=== PATIENT | female | born 1955 | race Caucasian/White ===

== ENCOUNTER 2018-07-15 10:42 | Observation (INO) | payer OTHER ==
[2018-07-15] MEDS: ONDANSETRON 4 MG INJ IV (12:00)
[2018-07-15] MEDS: HYDROmorphONE 1 MG/ML SYG IV (12:01)
[2018-07-15 12:11] LABS: ADD MAN DIFF? NO
[2018-07-15 12:17] LABS: BASOPHILS % 0.5 % (0.0-2.0); EOSINOPHILS % 0.7 % (0.0-7.0); HEMATOCRIT 35.1 % (37.0-47.0); HEMOGLOBIN 11.6 g/dl (12.0-16.0); LYMPHOCYTES # 3.1 10^3/ul (0.8-2.9); LYMPHOCYTES % 49.7 % (15.0-51.0); MEAN CORPUSCULAR HEMOGLOBIN 30.4 pg (29.0-33.0); MEAN CORPUSCULAR VOLUME 92.1 fl (82.0-101.0); MEAN PLATELET VOLUME 11.6 fl (7.4-10.4); MONOCYTE # 0.4 10^3/ul (0.3-0.9); MONOCYTES % 6.5 % (0.0-11.0); NEUTROPHIL # 2.6 10^3/ul (1.6-7.5); NEUTROPHILS % 42.4 % (39.0-77.0); PLATELET COUNT 175 10^3/UL (140-415); RED BLOOD COUNT 3.81 10^6/ul (4.20-5.40); RED CELL DISTRIBUTION WIDTH 13.2 % (11.5-14.5)
[2018-07-15 12:17] LABS: WHITE BLOOD COUNT 6.1 10^3/ul (4.8-10.8)
[2018-07-15 12:22] LABS: POSITIVE DIFF @See below
[2018-07-15 12:37] LABS: ANION GAP 10 (5-13); BLOOD UREA NITROGEN 28 mg/dl (7-20); CARBON DIOXIDE 22 mmol/L (21-31); CHLORIDE 106 mmol/L (97-110); Estimated GFR > 60 mL/min (>60); GLUCOSE 101 mg/dl (70-220); POTASSIUM 5.1 mmol/L (3.5-5.1); SODIUM 138 mmol/L (135-144)
[2018-07-15] MEDS: SOD CHLORIDE 0.9% 100 ML (12:47)
[2018-07-15] MEDS: IOHEXOL 300MG/ML 150 ML BTL (12:47)
[2018-07-15 12:48] LABS: TROPONIN-I < 0.012 ng/ml (0.000-0.120)
[2018-07-15] MEDS: LORAZEPAM 2 MG INJ IV (13:49)
[2018-07-15] MEDS ORDERED: ACETAMINOPHEN 325 MG TAB PO ×2 (14:00→15:00)
[2018-07-15] MEDS ORDERED: ONDANSETRON 4 MG INJ IV ×2 (14:00→15:00)
[2018-07-15] MEDS ORDERED: NACL 0.9% 3 ML SYG IV (15:00)
[2018-07-15 15:29] LABS: HEMOGLOBIN A1C 5.5 % (0-5.9)
[2018-07-15 15:32] LABS: FREE T4 (FREE THYROXINE) 1.15 ng/dl (0.78-2.44)
[2018-07-15] MEDS: KETOROLAC 30 MG INJ IV (17:41)
[2018-07-15] MEDS: ALBUTEROL/IPRATROPIUM (NEB) 3 ML AMP HHN (20:00)
[2018-07-15] MEDS: ATORVASTATIN 20 MG TAB PO (21:00)
[2018-07-15] MEDS: traMADol 50 MG TAB PO (23:47)
[2018-07-16] MEDS: LORAZEPAM 2 MG INJ IV ×3 (00:09→20:38)
[2018-07-16] MEDS: NICOTINE (21 MG/24 HR) PATCH TRANSDERM ×2 (02:44→08:55)
[2018-07-16 06:42] LABS: ABNORMAL IP MESSAGE 1; HEMOGLOBIN 10.5 g/dl (12.0-16.0); MEAN CORPUSCULAR HEMOGLOBIN 30.7 pg (29.0-33.0); MEAN CORPUSCULAR HGB CONC 32.8 g/dl (32.0-37.0); MEAN CORPUSCULAR VOLUME 93.6 fl (82.0-101.0); MEAN PLATELET VOLUME 10.4 fl (7.4-10.4); PLATELET COUNT 183 10^3/UL (140-415); RED BLOOD COUNT 3.42 10^6/ul (4.20-5.40); RED CELL DISTRIBUTION WIDTH 13.5 % (11.5-14.5)
[2018-07-16 06:49] LABS: POSITIVE DIFF @See below
[2018-07-16 06:50] LABS: ADD MAN DIFF? YES
[2018-07-16 07:10] LABS: CHOL/HDL RATIO 5.4 RATIO; CHOLESTEROL 200 mg/dl (100-200); HDL CHOLESTEROL 37 mg/dl (35-98); LDL CHOLESTEROL,CALCULATED 134 mg/dl; MAGNESIUM 1.9 mg/dl (1.7-2.5); TRIGLYCERIDES 143 mg/dl (0-149)
[2018-07-16 07:16] LABS: ALANINE AMINOTRANSFERASE 13 IU/L (13-69); ALBUMIN 3.8 g/dl (3.3-4.9); ALBUMIN/GLOBULIN RATIO 1.22; ALKALINE PHOSPHATASE 61 IU/L (42-121); ANION GAP 6 (5-13); ASPARTATE AMINO TRANSFERASE 24 IU/L (15-46); BLOOD UREA NITROGEN 39 mg/dl (7-20); CALCIUM 9.3 mg/dl (8.4-10.2); CARBON DIOXIDE 25 mmol/L (21-31); CHLORIDE 107 mmol/L (97-110); CREATININE 0.92 mg/dl (0.44-1.00); Estimated GFR > 60 mL/min (>60); GLUCOSE 91 mg/dl (70-220); POTASSIUM 4.4 mmol/L (3.5-5.1); SODIUM 138 mmol/L (135-144); TOTAL PROTEIN 6.9 g/dl (6.1-8.1)
[2018-07-16] MEDS: ALBUTEROL/IPRATROPIUM (NEB) 3 ML AMP HHN ×3 (08:00→20:49)
[2018-07-16] MEDS: traMADol 50 MG TAB PO ×2 (08:54→20:16)
[2018-07-16] MEDS: SERTRALINE 50 MG TAB PO (08:54)
[2018-07-16] MEDS: ENOXAPARIN 40 MG/0.4 ML SYG SC (09:06)
[2018-07-16 09:42] LABS: ADD UMIC NO; UR ASCORBIC ACID 20 mg/dL (NEGATIVE); UR BILIRUBIN (Dip) NEGATIVE (NEGATIVE); UR BLOOD (Dip) NEGATIVE (NEGATIVE); UR CLARITY CLEAR (CLEAR); UR COLOR YELLOW (YELLOW); UR GLUCOSE (Dip) NEGATIVE (NEGATIVE); UR KETONES (Dip) NEGATIVE (NEGATIVE); UR LEUKOCYTE ESTERASE (Dip) NEGATIVE Leu/ul (NEGATIVE); UR NITRITE (Dip) NEGATIVE (NEGATIVE); UR SPECIFIC GRAVITY (Dip) 1.046 (1.003-1.030); UR TOTAL PROTEIN (Dip) NEGATIVE (NEGATIVE); UR UROBILINOGEN (Dip) NEGATIVE (NEGATIVE)
[2018-07-16 10:14] LABS: ANISOCYTOSIS 1+ (0-0); EOSINOPHILS % (M) 2 % (0-7); LYMPHOCYTES % (M) 67 % (15-51); MONOCYTE #M 0.3 10^3/ul (0.3-0.9); MONOCYTES % (M) 4 % (0-11); PLATELET ESTIMATE NORMAL; REACTIVE LYMPHOCYTES% (M) 1 % (0-0); SEGMENTED NEUTROPHILS (M) % 26 % (39-77); SMUDGE%M 7 % (0-0)
[2018-07-16 10:21] LABS: AMPHETAMINE/METHAMPHETAMINE NEGATIVE (NEGATIVE); BARBITURATES NEGATIVE (NEGATIVE); BENZODIAZEPINES NEGATIVE (NEGATIVE); COCAINE NEGATIVE (NEGATIVE)
[2018-07-16 10:24] LABS: CANNABINOIDS POSITIVE (NEGATIVE)
[2018-07-16 10:25] LABS: OPIATES POSITIVE (NEGATIVE)
[2018-07-16] MEDS: HYDROmorphONE 1 MG/ML SYG IV (12:16)
[2018-07-16] MEDS: ATORVASTATIN 20 MG TAB PO (20:40)
[2018-07-17] MEDS: hydrALAzine 20 MG INJ IV (03:01)
[2018-07-17] MEDS: traMADol 50 MG TAB PO ×3 (03:02→14:07)
[2018-07-17] MEDS: LORAZEPAM 2 MG INJ IV ×3 (03:03→14:06)
[2018-07-17 05:56] LABS: ADD MAN DIFF? NO
[2018-07-17 06:04] LABS: WHITE BLOOD COUNT 9.3 10^3/ul (4.8-10.8)
[2018-07-17 06:04] LABS: ABNORMAL IP MESSAGE 1; BASOPHILS % 0.4 % (0.0-2.0); EOSINOPHILS # 0.1 10^3/ul (0.0-0.5); EOSINOPHILS % 1.5 % (0.0-7.0); HEMATOCRIT 33.7 % (37.0-47.0); LYMPHOCYTES # 6.4 10^3/ul (0.8-2.9); LYMPHOCYTES % 68.7 % (15.0-51.0); MEAN CORPUSCULAR HEMOGLOBIN 30.6 pg (29.0-33.0); MEAN CORPUSCULAR HGB CONC 32.6 g/dl (32.0-37.0); MEAN CORPUSCULAR VOLUME 93.9 fl (82.0-101.0); MONOCYTE # 0.6 10^3/ul (0.3-0.9); MONOCYTES % 6.2 % (0.0-11.0); NEUTROPHIL # 2.1 10^3/ul (1.6-7.5); NEUTROPHILS % 23.1 % (39.0-77.0); PLATELET COUNT 138 10^3/UL (140-415); RED BLOOD COUNT 3.59 10^6/ul (4.20-5.40); RED CELL DISTRIBUTION WIDTH 13.2 % (11.5-14.5)
[2018-07-17 06:31] LABS: ANION GAP 7 (5-13); BLOOD UREA NITROGEN 25 mg/dl (7-20); CALCIUM 9.8 mg/dl (8.4-10.2); CARBON DIOXIDE 26 mmol/L (21-31); CHLORIDE 104 mmol/L (97-110); CREATININE 0.65 mg/dl (0.44-1.00); Estimated GFR > 60 mL/min (>60); GLUCOSE 93 mg/dl (70-220); POTASSIUM 4.4 mmol/L (3.5-5.1); SODIUM 137 mmol/L (135-144)
[2018-07-17 06:34] LABS: POSITIVE DIFF @See below
[2018-07-17 06:45] LABS: PHOSPHORUS 3.7 mg/dl (2.5-4.9)
[2018-07-17 06:45] LABS: MAGNESIUM 1.8 mg/dl (1.7-2.5)
[2018-07-17 08:39] LABS: ANISOCYTOSIS 1+ (0-0); BASOPHIL #M 0.1 10^3/ul (0.0-0.0); BASOPHILS % (M) 2 % (0-2); EOSINOPHILS % (M) 2 % (0-7); HOWELL-JOLLY BODIES 1+ (0-0); LYMPHOCYTES #M 7.1 10^3/ul (0.8-2.9); LYMPHOCYTES % (M) 77 % (15-51); MICROCYTOSIS 1+ (0-0); MYELOCYTES % (M) 1 % (0-0); OVALOCYTES 1+ (0-0); PLATELET ESTIMATE DECREASED; REACTIVE LYMPHOCYTES% (M) 1 % (0-0); SEGMENTED NEUTROPHILS (M) % 17 % (39-77); SMUDGE%M 5 % (0-0)
[2018-07-17] MEDS: NICOTINE (21 MG/24 HR) PATCH TRANSDERM (08:45)
[2018-07-17] MEDS: SERTRALINE 50 MG TAB PO (08:46)
[2018-07-17] MEDS: ENOXAPARIN 40 MG/0.4 ML SYG SC (08:57)
[2018-07-17] MEDS: ALBUTEROL/IPRATROPIUM (NEB) 3 ML AMP HHN ×2 (09:27→14:00)
[2018-07-17] MEDS: KETOROLAC 30 MG INJ IV ×2 (12:25→19:01)
== END 2018-07-17 19:57 | disposition home or self-care (01) ==
LOC: E/R 10:42 → 6WM 13:45
DX: R55 Syncope and collapse (principal); E78.5 Hyperlipidemia, unspecified; F41.8 Other specified anxiety disorders; D64.9 Anemia, unspecified; I10 Essential (primary) hypertension; F17.200 Nicotine dependence, unspecified, uncomplicated; M54.9 Dorsalgia, unspecified; K57.30 Diverticulosis of large intestine without perforation or abscess without bleeding; I07.1 Rheumatic tricuspid insufficiency; J40 Bronchitis, not specified as acute or chronic
CPT/HCPCS: 36415; 70450; 71045; 72125; 72128; 72131; 74177; 80048; 80053; 80061; 80307; 81003; 83036; 83735; 84100; 84439; 84443; 84484; 85025; 86674; 87045; 87086; 87400; 93005; 93306; 94640; 94664; 96374; 96375; 97116; 97162; 97530; 99285-25; G0378

== ENCOUNTER 2018-09-09 18:33 | Emergency (ER) | payer OTHER | END 2018-09-09 19:51 | disposition home or self-care (01) | LOC: E/R 18:33 | DX: H60.501 Unspecified acute noninfective otitis externa, right ear (principal); R59.9 Enlarged lymph nodes, unspecified; Q16.1 Congenital absence, atresia and stricture of auditory canal (external); I10 Essential (primary) hypertension; Z87.891 Personal history of nicotine dependence | CPT/HCPCS: 99283; Z7502 ==

== ENCOUNTER 2018-10-02 10:26 | Emergency (ER) | payer OTHER ==
[2018-10-02] MEDS: ALBUTEROL 0.083% (NEB) 2.5 MG/3 ML AMP HHN (11:44)
[2018-10-02] MEDS: IPRATROPIUM (NEB) 0.5 MG/2.5 ML AMP HHN (11:44)
[2018-10-02] MEDS: DEXAMETHASONE 10 MG/ML 1 ML INJ IM (11:53)
[2018-10-02] MEDS: ONDANSETRON (ODT) 4 MG TAB ODT (12:17)
[2018-10-02] MEDS: HYDROCODONE/APAP (5/325) TAB PO (12:18)
== END 2018-10-02 12:25 | disposition home or self-care (01) ==
LOC: FTE 10:26
DX: R05 Cough (principal); I10 Essential (primary) hypertension; F17.210 Nicotine dependence, cigarettes, uncomplicated
CPT/HCPCS: 71045; 94664; 96372; 99284-25